=== PATIENT | male | born 1960 | race Caucasian/White ===

== ENCOUNTER 2021-08-17 15:36 | Emergency (ER) | payer OTHER ==
[~2021-08-17] VITALS: Ht 175.3 cm; Wt 90.3 kg
[2021-08-17] MEDS ORDERED: IBUPROFEN800 MG PO (17:51)
== END 2021-08-17 18:11 | disposition home or self-care (01) ==
LOC: FER 15:36
DX: S80.11XA Contusion of right lower leg, initial encounter (principal); Z88.0 Allergy status to penicillin; Z88.2 Allergy status to sulfonamides; V89.9XXA Person injured in unspecified vehicle accident, initial encounter; Y92.029 Unspecified place in mobile home as the place of occurrence of the external cause
CPT/HCPCS: 73590